=== PATIENT | male | born 1975 | race Two or more races ===

== ENCOUNTER 2016-09-20 22:54 | Emergency (ER) | payer SELFPAY ==
--- NOTE | 2016-09-20 23:22 | ED Physician Chart ---
Chief Complaint/HPI - Patient Information Date Seen:: 09/20/16 Time Seen:: 11:15 Chief Complaint:: Toothache for one week. History of Present Illness:: C/O toothache in L upper jaw for about one week. No fever. Taking po well well without N/V/D. Pt is here to request a stronger pain medication that he can take at home when his toothache becomes severe that cannot be controlled by OTC analgesics. Pt states that he has pending dental appoointment tomorrow. Allergies:: Allergies Allergy/AdvReac Type Severity Reaction Status Date / Time No Known Allergies Allergy Verified 09/20/16 23:11 Vitals:: Vital Signs - 8 hr 09/20/16 23:00 Temp 98.0 F HR 74 RR 16 BP 117/80 O2 Sat % 96 Historian:: Patient Family MD/PCP:: Dr. Lane LMP:: N/A Review:: Nurse's Note Reviewed Review of Systems - Review of Systems General/Constitutional: No fever, No chills, No weight loss, No weakness, No diaphoresis, No edema, No loss of appetite Skin: No skin lesions, No rash, No bruising Head: No headache, No light-headedness Eyes: No loss of vision, No pain, No diplopia ENT: No earache, No nasal drainage, No sore throat, No tinnitus, Other ( Toothache in L upper jaw.) Neck: No neck pain, No swelling, No thyromegaly, No stiffness, No mass noted Cardio Vascular: No chest pain, No palpitations, No PND, No orthopnea, No edema Pulmonary: No SOB, No cough, No sputum, No wheezing GI: No nausea, No vomiting, No diarrhea, No pain, No melena, No hematochezia, No constipation, No hematemesis G/U: No dysuria, No frequency, No hematuria Musculoskeletal: No bone or joint pain, No back pain, No muscle pain Endocrine: No polyuria, No polydipsia Psychiatric: No prior psych history Hematopoietic: No bruising, No lymphadenopathy Allergic/Immuno: No urticaria, No angioedema Neurological: No syncope, No focal symptoms, No weakness, No paresthesia, No headache, No seizure, No dizziness, No confusion, No vertigo Past Medical History - Past Medical History Past Medical History: No significant medical hx Family History: None Social History: Smoker (Half pack daily. Pt has been informed about health risks associated with chronic tobacco use and has been advised to quit. Pt has been encouraged to enroll in a smoking cessation. Pt acknowledges understanding. ), , Employed, Other (lives with his .) Employment:: [employer]. 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 Head: Atraumatic Eyes: Lids, conjuctiva normal, PERRL, EOMI Skin: Nl inspection, No rash, No skin lesions, No ecchymosis, Well hydrated, No lymphadenopathy ENMT: External ears, nose nl, TM canals nl, Nasal exam nl, Oropharynx nl, Tonsils nl Other ENMT comments:: There is mild discoloration of L upper 3rd molar tooth with tenderness. No open wound, erythema, or exudate. Neck: Nontender, Full ROM w/o pain, No nuchal rigidity, No mass, No stridor Other Neck comments:: No lymphadenopathy. Respiratory: Nl effort/Exclusion, Clear to Auscultation, No Wheeze/Rhonchi/Rales Cardio Vascular: RRR, No murmur, gallop, rubs, NL S1 S2 GI: No tenderness/rebounding/guarding, No organomegaly, No hernia, Normal BS's, Nondistended, No mass/bruits, No McBurney tenderness Other GI comments:: Abdomen is soft. Extremities: No tenderness or effusion, Full ROM, normal strength in all extremities, No edema, Normal digits & nails Neuro/Psych: Alert/oriented (oriented x 3), Mood normal, Normal gait, No focal deficits ED Septic Shock - . Is Septic Shock (SBP<90, OR Lactate>4 mmol\L) present?: No - <6hrs of presentation: Vital Signs: Vital Signs - 8 hr 09/20/16 23:00 Temp 98.0 F HR 74 RR 16 BP 117/80 O2 Sat % 96 Reassessment (Disposition) - Reassessment Reassessment:: 2340 Pt remains stable. Pt requests to go home now. Aftercare instructions given. - Diagnosis Diagnosis:: Dental pain c/w pulpitis, stable. - Aftercare/Follow up Instructions Aftercare/Follow-Up Instructions:: Refer to Discharge Instructions Notes:: Avoid extremely hot or cold food or drinks. Stop tobacco use. May take Motrin 200 mg tab 4 tabs po q8h prn pain. F/U with dentist of pt's choice in one day as scheduled. Return to ER immediately if condition worsens or if any further questions/problems. Medication Prescribed:: Amoxicillin 500 mg tab one tab po q8h D-30 R-0 Tylenol #3 one tab po q6h prn severe dental pain only. D-10 R-0 Drowsiness precautions given with the use of Tylenol #3 Pt has been informed not to take acetaminophen containing medications such as Tylenol with the use of Tylenol #3 - Patient Disposition Discharge/Transfer:: Home Time:: 23:45 Condition at Disposition:: Stable
== END 2016-09-20 23:50 | disposition home or self-care (01) ==
LOC: ER 22:54
DX: K04.01 Reversible pulpitis (principal); F17.200 Nicotine dependence, unspecified, uncomplicated
CPT/HCPCS: Z7502